=== PATIENT | female | born 1975 | race Hispanic/Latino ===

== ENCOUNTER → 2022-04-06 | Day surgery (SDC) | payer OTHER ==
[~2022-04-06] MED LIST: ALLERGY MEDICAT25 MG; EPINEPHRINE HCL 1:1000 1ML 1 MG/ML AMP ONE; HYOSCYAMINE SULFATE 0.5 MG/ML INJ ONE; IRON; LIDOCAINE HCL 2% LOCAL INJ 5 ML SDV VIAL INJ ONE; METOCLOPRAMIDE HCL 10 MG/2ML VIAL ONE; MIDAZOLAM HCL 2 MG/2 ML VIAL ONE; NASACORT16.9 ML; OMEPRAZOLE40 MG PO; PROPOFOL IV EMULSION 10 MG/ML 20 ML VIAL ONE; PROPOFOL IV EMULSION 50 ML IV ONE; TYLENOL EXTRA500 MG PO
[2022-04-06 11:50] VITALS: BP 144/83
== END | disposition home or self-care (01) ==
LOC: OR 07:50
PROVIDERS: ATTEND Internal Medicine Gastroenterology
DX: D64.9 Anemia, unspecified (principal); D12.3 Benign neoplasm of transverse colon; K31.7 Polyp of stomach and duodenum; K29.70 Gastritis, unspecified, without bleeding; K29.80 Duodenitis without bleeding; K63.89 Other specified diseases of intestine; K44.9 Diaphragmatic hernia without obstruction or gangrene; K20.90 Esophagitis, unspecified without bleeding; K21.9 Gastro-esophageal reflux disease without esophagitis; K64.8 Other hemorrhoids; K76.0 Fatty (change of) liver, not elsewhere classified; Z71.3 Dietary counseling and surveillance; J30.2 Other seasonal allergic rhinitis; Z68.39 Body mass index [BMI] 39.0-39.9, adult; Z80.0 Family history of malignant neoplasm of digestive organs
CPT/HCPCS: 43239; 45381; 45385; 81025; C9113; J0171; J1980; J2001; J2250; J2704 ×2; J2765; 45378

== ENCOUNTER → 2022-04-15 | Outpatient (CLI) | payer OTHER ==
[~2022-04-15] MED LIST changes: +DIATRIZOATE MEGL/DIATRIZOA SOD 30 ML BTL PO ONE; -EPINEPHRINE HCL 1:1000 1ML 1 MG/ML AMP ONE; -HYOSCYAMINE SULFATE 0.5 MG/ML INJ ONE; +IOPAMIDOL 370 MG/ML 100 ML INFUS..BTL INJ ONE; -LIDOCAINE HCL 2% LOCAL INJ 5 ML SDV VIAL INJ ONE; -METOCLOPRAMIDE HCL 10 MG/2ML VIAL ONE; -MIDAZOLAM HCL 2 MG/2 ML VIAL ONE; -PROPOFOL IV EMULSION 10 MG/ML 20 ML VIAL ONE; -PROPOFOL IV EMULSION 50 ML IV ONE
[2022-04-15 16:01] LABS: CREATININE, SERUM 0.7 mg/dL (0.57-1.11)
== END ==
LOC: CT 15:11
PROVIDERS: ATTEND Internal Medicine Gastroenterology
DX: K20.90 Esophagitis, unspecified without bleeding (principal); K63.5 Polyp of colon; K64.8 Other hemorrhoids
CPT/HCPCS: 36415; 74177; 81025; 82565; 84520; Q9963; Q9967

== ENCOUNTER → 2022-06-29 | Day surgery (SDC) | payer OTHER ==
[~2022-06-29] MED LIST changes: -DIATRIZOATE MEGL/DIATRIZOA SOD 30 ML BTL PO ONE; +FENTANYL CITRATE/PF 100MCG/2 ML INJ ONE; +FLONASE ALLERG9.9 ML INH; +HYOSCYAMINE SULFATE 0.5 MG/ML INJ ONE; -IOPAMIDOL 370 MG/ML 100 ML INFUS..BTL INJ ONE; +LACTATED RINGER'S 1,000 ML ONE; +LIDOCAINE HCL 2% LOCAL INJ 5 ML SDV VIAL INJ ONE; +MIDAZOLAM HCL 2 MG/2 ML VIAL ONE; +PROBIOTIC & AC1 EACH PO; +PROPOFOL IV EMULSION 10 MG/ML 20 ML VIAL ONE; +VIT D3 PO; +ZYRTEC10 MG
[2022-06-29 08:35] VITALS: BP 135/83
== END | disposition home or self-care (01) ==
LOC: OR 06:21
PROVIDERS: ATTEND Internal Medicine Gastroenterology
DX: D12.3 Benign neoplasm of transverse colon (principal); K64.8 Other hemorrhoids; D64.9 Anemia, unspecified; Z88.0 Allergy status to penicillin; Z80.0 Family history of malignant neoplasm of digestive organs
CPT/HCPCS: 45385; 81025; J1980; J2001; J2250; J2704; J3010; J7121; 45378

== ENCOUNTER → 2022-08-31 | Day surgery (SDC) | payer OTHER ==
[~2022-08-31] MED LIST changes: +DICYCLOMINE HCL 20 MG/2 ML VIAL IM ONE; -HYOSCYAMINE SULFATE 0.5 MG/ML INJ ONE; +LACTATED RINGER'S 0 ML ONE; +LACTATED RINGER'S 1,000 ML BAG ONE; -LIDOCAINE HCL 2% LOCAL INJ 5 ML SDV VIAL INJ ONE; +METOCLOPRAMIDE HCL 10 MG/2ML VIAL ONE; +ONDANSETRON HCL INJ 2MG/ML 2ML 2 MG/ML VIAL ONE; +SODIUM CHLORIDE 0.9% 1000ML 1,000 ML ONE; +VESICARE5 MG PO
[2022-08-31 11:31] VITALS: TEMP 98.9
[2022-08-31 11:51] VITALS: BP 131/79; PULSE 70; RESP 18; O2SAT 99
== END | disposition home or self-care (01) ==
LOC: OR 07:40
PROVIDERS: ATTEND Internal Medicine Gastroenterology
DX: D12.3 Benign neoplasm of transverse colon (principal); K64.8 Other hemorrhoids; K29.70 Gastritis, unspecified, without bleeding; K44.9 Diaphragmatic hernia without obstruction or gangrene; D50.9 Iron deficiency anemia, unspecified; Z88.0 Allergy status to penicillin
CPT/HCPCS: 45385; 81025; J2250; J3010; J7121; 45378; 45384; J2765

== ENCOUNTER → 2024-08-16 | Outpatient (REF) | payer OTHER ==
[~2024-08-16] MED LIST changes: +BIOTIN KERATIN PO; -DICYCLOMINE HCL 20 MG/2 ML VIAL IM ONE; -FENTANYL CITRATE/PF 100MCG/2 ML INJ ONE; +HYDROXYZINE HCL10 MG PO; -LACTATED RINGER'S 0 ML ONE; -LACTATED RINGER'S 1,000 ML BAG ONE; -LACTATED RINGER'S 1,000 ML ONE; -METOCLOPRAMIDE HCL 10 MG/2ML VIAL ONE; -MIDAZOLAM HCL 2 MG/2 ML VIAL ONE; -ONDANSETRON HCL INJ 2MG/ML 2ML 2 MG/ML VIAL ONE; -PROPOFOL IV EMULSION 10 MG/ML 20 ML VIAL ONE; -SODIUM CHLORIDE 0.9% 1000ML 1,000 ML ONE; +VIT C PO
== END ==
LOC: US 07:17
PROVIDERS: ATTEND Family Medicine
DX: R10.11 Right upper quadrant pain (principal); R10.31 Right lower quadrant pain
CPT/HCPCS: 76700